=== PATIENT | female | born 1930 | race Caucasian/White ===

== ENCOUNTER 2017-04-19 13:42 | Day surgery (SDC) | payer OTHER ==
[~2017-04-19] VITALS: Ht 167.6 cm; Wt 53.0 kg
[~2017-04-19 13:42] MED LIST: ARICEPT5 MG PO; ASPIRIN81 M2 PO; CALCIUM CARB 51 EACH PO; IRON240 MG PO; KLONOPIN0.5 M1 PO; LASIX40 MG PO; LINZESS72 MCG PO; LIPITOR40 MG PO; LOPRESSOR50 MG PO; LUMIGAN 0.50 DROP/22 BOTH EYES; MEGACE ES625 MG/5 M PO; MIACALCIN3.7 ML ALT NARES; MURO-128 5300 DROP/1 BOTH EYES; NEURONTIN100 MG PO; PRINIVIL20 MG PO; PROAIR RESPICL90 MCG IH; TIMOPTIC-XE GEL5 ML BOTH EYES; TYLENOL WITH C1 EACH PO; VITAMIN D-32000 UNI2 PO
[2017-04-19] MEDS ORDERED: ASPIR 8181 M1 PO (14:12)
[2017-04-19 14:14] VITALS: BP 142/63
[2017-04-19] MEDS ORDERED: TYLENOL WITH C1 EACH PO (14:34)
[2017-04-19 19:57] VITALS: BP 138/61
[2017-04-19 21:01] VITALS: BP 140/65
[2017-04-19 21:32] VITALS: BP 134/61
== END 2017-04-19 21:50 | disposition home or self-care (01) ==
LOC: SDC 13:42
PROC: 0PSJ04Z Reposition Left Radius with Internal Fixation Device, Open Approach (ICD-10-PCS; principal; 2017-04-19)
DX: S52.572A Other intraarticular fracture of lower end of left radius, initial encounter for closed fracture (principal); W18.30XA Fall on same level, unspecified, initial encounter; Y93.01 Activity, walking, marching and hiking; Y92.531 Health care provider office as the place of occurrence of the external cause; I10 Essential (primary) hypertension; F32.9 Major depressive disorder, single episode, unspecified; G30.9 Alzheimer's disease, unspecified; F02.80 Dementia in other diseases classified elsewhere, unspecified severity, without behavioral disturbance, psychotic disturbance, mood disturbance, and anxiety; Z79.82 Long term (current) use of aspirin; Z95.5 Presence of coronary angioplasty implant and graft; Z82.49 Family history of ischemic heart disease and other diseases of the circulatory system; Z80.9 Family history of malignant neoplasm, unspecified; Z83.3 Family history of diabetes mellitus; Z84.1 Family history of disorders of kidney and ureter
CPT/HCPCS: 73110; 76000; C1713; J0131; J0360; J0690; J1100; J2405; J2765; J3010; S0020